=== PATIENT | male | born 1955 | race Caucasian/White ===

== ENCOUNTER 2017-06-23 08:21 | Outpatient (RCR) | payer OTHER ==
[2013-12-07 16:03] VITALS: Ht 175.3 cm; Wt 68.9 kg
[2017-04-12 09:17] LABS: PLATELET COUNT, AUTOMATED 80 K/uL (150-450)
[2017-04-12 09:24] VITALS: BP 141/81
[2017-04-19 13:00] VITALS: BP 154/80
--- NOTE | 2017-04-23 22:11 | ONCOLOGY FOLLOW UP NOTE ---
EVENT DATE: 04/19/2017 CHIEF COMPLAINT/REASON FOR VISIT Mr. 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 HISTORY OF PRESENT ILLNESS Juan sosa. Please see his oncology history below. He has undergone multiple ablative procedures to the liver with Y-90 including one in 2015. He has had excellent response to this in the past. He has known peritoneal studding on scans and this has increased with the most recent scan. This led to initiation of everolimus 10 mg daily in approximately March 2017 under the care of Dr. Toscano in [place]. I reviewed imaging from there through the [facility] system. He feels that he is already getting response as he feels some unusual sensations in the abdomen that are similar to when he was first diagnosed. He has very little side effects other than myelosuppression. I reviewed his labs from April 12, 2017, and we note some mild myelosuppression , but no need for dose adjustment at this time. We would like to check his labs approximately every two weeks for the next few weeks to see if he has plateaued and will go back up. If he continues to go down we may need to make a dose adjustment. Otherwise minimal GI symptoms with no major bowel changes. He does need to take a bowel movement earlier in the day than usual, but he is adapting his life around that. No diarrhea. No headaches, excess fatigue or other concerns. ONCOLOGY HISTORY He presented with chest pain in October of 2013. He had pain off and on for two years prior to that time. A round mass in the pancreatic head measuring approximately 3.5 cm was discovered. This was resected by Whipple surgery, and it was also discovered that he had numerous liver metastases. This was discovered to be a well-differentiated neuroendocrine tumor with a low Ki-67. He has been treated with octreotide with good success, but then had some progression evident near the end of 2014 or early 2015. Decision to proceed with directed therapy to the liver with palliative intent in September 2015, continuing octreotide. Due to growth of lesions in the peritoneum and liver, he initiated Afinitor 10 mg daily in March 2017. PAST MEDICAL, PAST SURGICAL HISTORY 1. BPH. 2. Osteopenia. 3. Hypercholesterolemia. 4. Metastatic neuroendocrine tumor. SOCIAL HISTORY The patient is . He has two adult sons. 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 He has a past history of team [email or web address]coming in [facility] and is wearing a trophy belt from 2002. 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 Nonsmoker. FAMILY HISTORY Father with prostate cancer at age sixty-five. Brother with bladder cancer at age thirty-nine. Paternal grandmother with pancreatic cancer at the age of eighty. Sister with sarcoma of the leg, now . ALLERGIES No known drug allergies. REVIEW OF SYSTEMS CONSTITUTIONAL: No fevers, chills, weight change. HEENT: No headache or vision changes. CARDIOVASCULAR: No chest pain, dyspnea on exertion or edema. RESPIRATORY: No shortness of breath, wheeze, cough. GASTROINTESTINAL: No nausea, vomiting, diarrhea. No issues with constipation currently. GENITOURINARY: No dysuria or hematuria. MUSCULOSKELETAL: No weakness or joint pain. PSYCHIATRIC: No anxiety or depression. ENDOCRINE: No heat or cold intolerance. SKIN: No concerning flushing, sweats or other concerns for carcinoid syndrome. LYMPHATIC: No concerning lumps or bumps. The remainder of the 14-point review of systems is otherwise negative. PHYSICAL EXAMINATION VITAL SIGNS: Blood pressure 154/80 and stable. No increase with the addition of Afinitor. Pulse 52, respiratory rate 16, temperature 97.6 Fahrenheit, oxygen saturation 93% on room air. Weight 70.9 kg. Pain 0/10, fatigue 0/10. GENERAL: In stable condition, resting comfortably in the chair. HEENT: Normocephalic, atraumatic. ABDOMEN: Soft, nontender, nondistended. No organomegaly or masses appreciated. EXTREMITIES: No clubbing, cyanosis or edema. No other abnormal findings on exam today. Full exam deferred to amount of time spent in counseling and coordination of care. IMPRESSION AND PLAN Mr. Guadarrama is a very pleasant 61-year-old gentleman with the followin. Metastatic pancreatic neuroendocrine tumor with metastasis to the liver and peritoneum. Well-differentiated with a low Ki-67 score. He has received multiple episodes of Y-90 with good success. He is now on Afinitor and has been on it for one month. He has some myelosuppression. We will check his labs again in one week. We will see him with my nurse practitioner monthly while in [place]. He sees Dr. Toscano with repeat imaging in [place] in approximately June. I answered all of his many questions today. 2. B12 deficiency. History of B12 shots. We have continued these. I answered all of his questions today. Billing: Return visit level 4. Total time 30 minutes, counseling time 20. High risk, high complexity. MTDD
[2017-04-28 08:37] VITALS: BP 148/89
[2017-04-28 08:49] LABS: PLATELET COUNT, AUTOMATED 90 K/uL (150-450)
[2017-05-26 09:37] LABS: PLATELET COUNT, AUTOMATED 123 K/uL (150-450)
[2017-05-26 15:24] VITALS: BP 148/89
[2017-06-07 10:05] VITALS: BP 144/89
--- NOTE | 2017-06-08 18:53 | ONCOLOGY FOLLOW UP NOTE ---
EVENT DATE: June 07, 2017 CHIEF COMPLAINT/REASON FOR VISIT Mr. 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 HISTORY OF PRESENT ILLNESS Juan sosa. Please see his oncology history below. He has undergone multiple ablative procedures to the liver with Y-90, including one in 2015, with an excellent response in the past. He now has peritoneal studding on scans that increased with a scan in late 2016, leading to initiation of everolimus 10 mg daily in March 2017. Imaging is done under the care of Dr. Toscano in [place]. The patient has noted some slight increase in his rash since starting this and some increased fatigue. Otherwise he is tolerating this extremely well. He had some initial mild myelosuppression, but not enough to warrant a dose adjustment. We expected his labs to improve and they slowly have. He does continue to have some mild lymphopenia. Minimal GI symptoms. No other concerns today. He has scans to assess response after three months, due at the end of this month in [place]. ONCOLOGY HISTORY He presented with chest pain in October of 2016, and had pain for approximately two years on and off prior to that time. A round mass in the pancreatic head measuring approximately 3.5 cm was discovered. This was resected by a Whipple surgery and it was also discovered at that time that he had numerous liver metastases. Fortunately this was determined to be a low-grade, well- differentiated neuroendocrine tumor with a low Ki-67 score. He has been treated with Octreotide with good success in his symptoms, but had progression in [id number] leading to directed therapy to the liver. Due to growth of lesions in the peritoneum and liver in 2016, he initiated Afinitor 10 mg daily in March 2017. PAST MEDICAL/SURGICAL HISTORY 1. BPH. 2. Osteopenia. 3. Hypercholesterolemia. 4. Low grade metastatic neuroendocrine tumor. SOCIAL HISTORY Patient is and has presented with his . 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 Two adult sons. He has trophy belts from 2003 from [employer] in [place]. 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 Nonsmoker. FAMILY HISTORY Remarkable for a father with prostate cancer at age 65, and a brother with bladder cancer at age 39. A paternal grandmother had pancreatic cancer at the age of 80. He also has a sister who had a sarcoma of the leg, now . ALLERGIES No known drug allergies. REVIEW OF SYSTEMS CONSTITUTIONAL: No fevers, chills, weight change. HEENT: No headache or vision changes. CARDIOVASCULAR: No chest pain, dyspnea on exertion or edema. RESPIRATORY: No shortness of breath, wheeze, cough. GASTROINTESTINAL: No nausea, vomiting, diarrhea. No issues with constipation currently. GENITOURINARY: No dysuria or hematuria. MUSCULOSKELETAL: No weakness or joint pain. PSYCHIATRIC: No anxiety or depression. ENDOCRINE: No heat or cold intolerance. SKIN: No concerning flushing, sweats. He does get occasional itchy rash that responds to Benadryl. LYMPHATIC: No concerning lumps or bumps. The remainder of the 14-point review of systems is otherwise negative. PHYSICAL EXAMINATION VITAL SIGNS: Blood pressure 144/89, pulse 63, respiratory rate 16, temperature 98.4 Fahrenheit, oxygen saturation 97% on room air. Weight 68.9 kg. Pain 0/10 , fatigue 0/10. GENERAL: In stable condition, resting comfortably in the chair. HEENT: Normocephalic, atraumatic. ABDOMEN: Soft, nontender. He has a large surgical scar from his Whipple procedure with no abnormalities. SKIN: He has a mild rash on his right chest that is somewhat pruritic according to the patient. No other concerning findings on exam. EXTREMITIES: No clubbing, cyanosis or edema. Remainder of the full physical exam otherwise negative. IMPRESSION AND PLAN Mr. Guadarrama is a pleasant 62-year-old gentleman with the followin. Metastatic low grade pancreatic neuroendocrine tumor with metastasis to the liver and peritoneum. Low Ki-67 score. He has received multiple episodes of Y- 90 in the past with good success to the liver. He is now on Afinitor and tolerating it well. He had some initial myelosuppression, but this has resolved or improved. He still does have some mild lymphopenia. We would like to see him monthly while he is on this therapy here in [place]. He has repeat imaging at the end of June with Dr. Toscano in [place]. 2. History of B12 deficiency. He has a history of B12 shots. 3. Rash. I believe this is likely related to his neuroendocrine disease and we will treat it symptomatically. I answered all of his questions today. Billing: Return visit level 4. Total time 30 minutes, counseling time 20. High risk, high complexity. MARIA ESTHERD
[~2017-06-23] VITALS: Ht 175.3 cm; Wt 68.9 kg
[~2017-06-23 08:21] MED LIST: ALE70 PO; ATR10 PO; CHOL200021 PO; CHOL400C10 PO; CYANOCOBALAMIN 1000MCG/ML VIAL IM ONLY PRN; DOCU-416 PO; ERGO500025 PO; ERGO500029 PO; ESCI5TAB10 PO; EVER10TA PO; FINA5TAB64 PO; HYDR-4309 PO; IBUP600T22 PO; LIPA1CAP59 PO; LIPA1CAP63 PO; LOR5/325 PO; OMEP-125 PO; OMEP-137 PO; OMEP-218 PO; OMEP40CA45 PO; OMEP40CA48 PO; ONDA4TAB PO; OXYB5TAB86 PO; OXYC-865 PO; PHEN200T32 PO; TERA10CA44 PO; [UNRECOGNIZED DRUG - CODE]; [UNRECOGNIZED DRUG - CODE] IJ; [UNRECOGNIZED DRUG - CODE] IM; [UNRECOGNIZED DRUG - CODE] PO; [UNRECOGNIZED DRUG - OTHER] IM ONLY ONE
[2017-06-23 08:39] VITALS: BP 139/100
[2017-06-23] MEDS ORDERED: [UNRECOGNIZED DRUG - OTHER] IM ONLY PRN (08:55)
== END 2017-07-08 ==
LOC: SPU 08:21
PROVIDERS: ATTEND Internal Medicine
DX: C7A.8 Other malignant neuroendocrine tumors (principal); C78.7 Secondary malignant neoplasm of liver and intrahepatic bile duct; C79.89 Secondary malignant neoplasm of other specified sites; E53.8 Deficiency of other specified B group vitamins; R21 Rash and other nonspecific skin eruption
CPT/HCPCS: 36415; 85025; 85027; 96372; 96401; 99212; J2353; 82040; 82247; 82310; 82374; 82435; 82565; 82607; 82947; 84075; 84132; 84155; 84295; 84450; 84460; 84520

== ENCOUNTER 2017-06-24 01:27 | Day surgery (SDC) | payer OTHER ==
[2013-12-07 16:03] VITALS: Ht 175.3 cm; Wt 63.5 kg
[~2017-06-24] VITALS: Ht 175.3 cm; Wt 63.5 kg
[~2017-06-24 01:27] MED LIST changes: -CYANOCOBALAMIN 1000MCG/ML VIAL IM ONLY PRN; -[UNRECOGNIZED DRUG - OTHER] IM ONLY ONE
[2017-06-24 06:15] VITALS: BP 129/79
[2017-06-24] MEDS ORDERED: NORMOSOL R SOLN(*) 1000 ML BAG 1,000 ML IV PRN (06:45)
[2017-06-24] MEDS ORDERED: MIDAZOLAM 2 MG/2 ML VIAL IVP PRN (06:45)
[2017-06-24] MEDS ORDERED: LIDOCAINE/SOD BICARB 8.4% SYR ID ONE (06:45)
[2017-06-24] MEDS ORDERED: LIDOCAINE MPF 1% 5 ML VIAL ONE (07:24)
[2017-06-24] MEDS ORDERED: PROPOFOL EMUL(*) 10MG/ML 20 ML 40 ML ONE (07:24)
[2017-06-24 08:01] VITALS: BP 97/64
--- NOTE | 2017-06-24 08:02 | Post Operative Progress Note ---
Post Operative Progress Note Date: Jun 24, 2017 Time: 08:01 Surgeon: catrina Anesthesia: dr treviño Pre-Op Diagnosis: history of colon polyps Post-Op Diagnosis: normal exam Procedure(s): colonoscopy JOAN FLORENTINO MD Jun 24, 2017 08:02
--- NOTE | 2017-06-24 08:03 | Short(Outpt) Discharge Summary ---
Discharge Summary Reason for Hosp/Final Diag: (1) Encounter for colonoscopy due to history of adenomatous colonic polyps Hospital Course & Plan: normal colonoscopy Departure Discharge to: Home Discharge Instructions Home Meds Reported Medications Hydrocodone Bit/Acetaminophen (NORCO 5-325 TABLET) 1 Each Tablet, 1-2 EACH PO Q6H Y for pain, #20 TAB 04/08/17 Everolimus (AFINITOR) 10 Mg Tablet, 10 MG PO QDAY 04/07/17 Dexamethasone/Lidocaine HCl (Lidocidex I) 5 Mg-10 Mg/1.5 Ml Vial mouthwash use TID 03/31/17 Ibuprofen (IBUPROFEN) 600 Mg Tablet, 1 TAB PO Q6H Y for PAIN, #20 TAB 03/04/17 Octreotide Acetate (OCTREOTIDE ACETATE) 500 Mcg/1 Ml Vial, IJ [id number], VIAL 02/26/17 Escitalopram Oxalate (LEXAPRO) 5 Mg Tablet, 10 MG PO QDAY 03/20/15 Oxybutynin Chloride (OXYBUTYNIN CHLORIDE) 5 Mg Tablet, 10 MG PO QDAY, TAB 09/06/14 Finasteride (PROSCAR) 5 Mg Tablet, 5 MG PO QDAY 09/06/14 Terazosin Hcl (TERAZOSIN HCL) 10 Mg Capsule, 10 MG PO QHS, CAPSULE 09/06/14 Cholecalciferol (Vitamin D3) (VITAMIN D) 2,000 Unit Capsule, 2000 UNIT PO QDAY, CAPSULE 09/06/14 Alendronate Sodium (Fosamax) 70 Mg Tab, 70 MG PO QWK, #1 09/17/11 Discontinued Reported Medications Everolimus (AFINITOR) 10 Mg Tablet, 10 MG PO QDAY 03/31/17 Docusate Sodium (COLACE) 100 Mg Capsule, 100 MG PO BID, #30 CAPSULE 03/04/17 Cyanocobalamin (Vitamin B-12) (Vitamin B-12) 3,000 Mcg Lozenge, IM PRN 02/26/17 Discontinued Scripts Lipase/Protease/Amylase (CREON DR 24,000 UNITS CAPSULE) 1 Each Capsule., 1-3 EACH PO with meals and snack, #180 CAP 11 Refills Prov:TUTU COTTO MD 09/18/15 Diet: Regular Activity: As Tolerated JOAN FLORENTINO MD Jun 24, 2017 08:03
[2017-06-24 08:38] VITALS: BP 126/68
[2017-06-24 08:40] VITALS: BP 114/64
--- NOTE | 2017-06-24 14:21 | OPERATIVE REPORT 1 ---
EVENT DATE: June 24, 2017 SURGEON: David Hoff MD ANESTHESIOLOGIST: Stephen Abad MD ANESTHESIA: Sedation. PREOPERATIVE DIAGNOSIS Personal history of polyps. POSTOPERATIVE DIAGNOSIS Normal-appearing colonoscopic examination. PROCEDURE PERFORMED Colonoscopy. DESCRIPTION OF PROCEDURE The patient was placed in the left lateral decubitus position and given intravenous sedation. The rectal exam was unremarkable. A flexible colonoscope was inserted and advanced to the cecum. He had an excellent bowel prep. He had quite a long colon. We had to place him supine, hold pressure on the abdomen, and do some maneuvers with the scope, but we were able to get over to the cecum. The ileocecal valve and base of the cecum were identified. The scope was slowly withdrawn. Care was taken to look behind the haustral folds. No abnormalities were noted in the cecum, right colon, transverse, descending, or sigmoid colon. Rectum was normal. The scope was retroflexed, and that appeared to be normal. [facility]
== END 2017-06-24 08:59 | disposition home or self-care (01) ==
LOC: OR 01:27
PROVIDERS: ATTEND Surgery
DX: Z12.11 Encounter for screening for malignant neoplasm of colon (principal); Z86.010 Personal history of colon polyps
CPT/HCPCS: 00812; 45378; J2001; J2704

== ENCOUNTER → 2017-07-26 | Outpatient (CLI) | payer OTHER ==
[2013-12-07 16:03] VITALS: BMI 24.4
--- NOTE | 2017-07-26 16:38 | RADIOLOGY IMAGING REPORT ---
FACILITY: [facility] PATIENT NAME: Juan Guadarrama : 1955 MR: [id number] V: [id number] EXAM DATE: [id number] ORDERING PHYSICIAN: JOAN FLORENTINO TECHNOLOGIST: Location: [facility] [place] Patient: Juan Guadarrama : 1955 Visit/Account:[id number] Date of Sevice: 07/26/2017 SCROTAL ULTRASOUND INDICATION: Spermatic cord mass for three years COMPARISON: Termination of the abdomen and pelvis from April 2017 FINDINGS: Right testicle measures 3.4 x 1.8 x 2.1 cm in cc, AP, and transverse dimensions respectively. There is normal arterial and venous blood flow. Small hydrocele Small varicocele The right epididymal head measures 1.2 cm. Left testicle measures 4.1 x 2.1 x 3.2 cm in cc, AP, and transverse dimensions respectively. There is normal arterial and venous blood flow. Small hydrocele Small left varicocele The left epididymal head measures 0.8 cm. Superior to the left testicle there is a thin-walled cyst c yst without complexity or internal vascularity which measures 4.8 x 1.7 x 2.8 cm in dimension. This appears to be separate from the epididymis. The bilateral testicles appear homogenous in echogenicity. IMPRESSION: 1. Small bilateral varicoceles 2. Simple, benign-appearing 4.8 cm cyst within the left inguinal canal. The finding appears stable as compared to the prior CT examination abdomen and pelvis from April 2017 Report Dictated By: Prashant Olivier MD at 07/26/2017 4:25 PM Report E-Signed By: Prashant Olivier MD at 07/26/2017 4:33 PM WSN:[id number]
--- NOTE | 2017-07-27 16:27 | HISTORY AND PHYSICAL ---
DATE OF ADMISSION: July 27, 2017 CHIEF COMPLAINT Lump in his left groin. HISTORY OF PRESENT ILLNESS This is a 61-year-old male who has had a Whipple resection for a pancreas with an endocrine tumor, and he has had mets to the liver, and he presented with a lump in his left groin. This lump has been present for several months and is causing him some discomfort, especially when he rides horses. Patient underwent an ultrasound examination which revealed a 4.8 x 2.8 cm cyst in the superior aspect of his spermatic cord. PAST SURGICAL HISTORY * Colonoscopy. * EGD. * Kidney stones. * Liver resection. * Whipple operation. ALLERGIES No known allergies. CURRENT MEDICATIONS * Afinitor 10 mg daily. * Alendronate 70 mg. * Lexapro 10 mg. * Oxybutynin 5 mg. * Pepcid 20 mg. * Proscar 5 mg. * Terazosin 10 mg. REVIEW OF SYSTEMS He has no cardiac disease, pulmonary disease, no diabetes. There is no history of deep vein thrombosis. PHYSICAL EXAMINATION GENERAL: A 61-year-old male in no acute distress. LUNGS: Clear. HEART: Regular rhythm. GENITOURINARY: He has a palpable mass in the left spermatic cord just after the external ring. No palpable hernia. IMPRESSION Cyst in the left groin. PLAN We will excise this. We discussed the procedure,complications, recovery time. He understands and wishes to proceed. CINTHYA
== END ==
LOC: US 15:02
PROVIDERS: ATTEND Surgery
DX: I86.1 Scrotal varices (principal); N50.89 Other specified disorders of the male genital organs
CPT/HCPCS: 76870

== ENCOUNTER 2017-08-03 01:29 | Day surgery (SDC) | payer OTHER ==
[2013-12-07 16:03] VITALS: Ht 175.3 cm; Wt 65.3 kg
[~2017-08-03] VITALS: Ht 175.3 cm; Wt 65.3 kg
[2017-08-03] MEDS ORDERED: LIDOCAINE/SOD BICARB 8.4% SYR ID ONE (06:30)
[2017-08-03] MEDS ORDERED: MIDAZOLAM 2 MG/2 ML VIAL IVP ONE (06:30)
[2017-08-03] MEDS: FAMOTIDINE 20 MG TAB PO ONE ×2 (06:30→06:59)
[2017-08-03] MEDS ORDERED: ROPIVACAINE 0.2% 20 ML VIAL ONE (06:38)
[2017-08-03] MEDS: NORMOSOL R SOLN(*) 1000 ML BAG 1,000 ML IV PRN ×2 (06:59→08:36)
[2017-08-03 07:00] VITALS: BP 156/83
[2017-08-03] MEDS ORDERED: FAMOTIDINE(*) 20MG/50ML PREMIX 50 ML IVPB ONE (07:00)
[2017-08-03] MEDS ORDERED: SUCCINYLCHOL CHL 200MG/10ML VL ONE (07:30)
[2017-08-03] MEDS ORDERED: LIDOCAINE MPF 1% 5 ML VIAL ONE (07:54)
[2017-08-03] MEDS ORDERED: ONDANSETRON 4 MG/2 ML VIAL ONE (07:54)
[2017-08-03] MEDS ORDERED: DEXAMETHASONE SOD PHOS 10MG/ML ONE (07:54)
[2017-08-03] MEDS ORDERED: PROPOFOL EMUL(*) 10MG/ML 20 ML 40 ML ONE (07:54)
[2017-08-03] MEDS ORDERED: OXYC-865 PO (08:24)
--- NOTE | 2017-08-03 08:24 | Post Operative Progress Note ---
Post Operative Progress Note Date: Aug 03, 2017 Time: 08:23 Surgeon: catrina Anesthesia: dr kyle Pre-Op Diagnosis: left hydrocele Post-Op Diagnosis: same Procedure(s): left hydrocelectomy JOAN FLORENTINO MD Aug 03, 2017 08:23
--- NOTE | 2017-08-03 08:26 | Short(Outpt) Discharge Summary ---
Discharge Summary Reason for Hosp/Final Diag: (1) Hydrocele in adult Hospital Course & Plan: left hydrocele excised Departure Discharge to: Home Discharge Instructions Home Meds Active Scripts Oxycodone Hcl/Acetaminophen (PERCOCET 5-325 MG TABLET) 1 Each Tablet, 1 EACH PO Q4H Y for PAIN, #30 TAB Prov:JOAN FLORENTINO MD 08/03/17 Reported Medications Hydrocodone Bit/Acetaminophen (NORCO 5-325 TABLET) 1 Each Tablet, 1-2 EACH PO Q6H Y for pain, #20 TAB 04/08/17 Everolimus (AFINITOR) 10 Mg Tablet, 10 MG PO QDAY 04/07/17 Dexamethasone/Lidocaine HCl (Lidocidex I) 5 Mg-10 Mg/1.5 Ml Vial mouthwash use TID 03/31/17 Ibuprofen (IBUPROFEN) 600 Mg Tablet, 1 TAB PO Q6H Y for PAIN, #20 TAB 03/04/17 Octreotide Acetate (OCTREOTIDE ACETATE) 500 Mcg/1 Ml Vial, IJ [id number], VIAL 02/26/17 Escitalopram Oxalate (LEXAPRO) 5 Mg Tablet, 10 MG PO QDAY 03/20/15 Oxybutynin Chloride (OXYBUTYNIN CHLORIDE) 5 Mg Tablet, 10 MG PO QDAY, TAB 09/06/14 Finasteride (PROSCAR) 5 Mg Tablet, 5 MG PO QDAY 09/06/14 Terazosin Hcl (TERAZOSIN HCL) 10 Mg Capsule, 10 MG PO QHS, CAPSULE 09/06/14 Cholecalciferol (Vitamin D3) (VITAMIN D) 2,000 Unit Capsule, 2000 UNIT PO QDAY, CAPSULE 09/06/14 Alendronate Sodium (Fosamax) 70 Mg Tab, 70 MG PO QWK, #1 09/17/11 Diet: Regular Activity: As Tolerated Special Instructions: ibuprofen prn may shower to see me in one week, call [phone] for apt JOAN FLORENTINO MD Aug 03, 2017 08:26
[2017-08-03] MEDS ORDERED: fentaNYL CITR 100 MCG/2 ML AMP ONE (08:34)
[2017-08-03 09:00] VITALS: BP 125/79
[2017-08-03 09:15] VITALS: BP 133/83
[2017-08-03 09:30] VITALS: BP 149/80
[2017-08-03 09:41] VITALS: BP 123/79
[2017-08-03 09:42] VITALS: BP 111/72
--- NOTE | 2017-08-10 21:23 | OPERATIVE REPORT 1 ---
EVENT DATE: August 03, 2017 SURGEON: David Hoff MD ANESTHESIOLOGIST: Micha Montiel MD ANESTHESIA: General. PREOPERATIVE DIAGNOSIS Left hydrocele. POSTOPERATIVE DIAGNOSIS Left hydrocele. PROCEDURE PERFORMED Left hydrocelectomy. DESCRIPTION OF PROCEDURE The patient was placed in the supine position and given general anesthetic. His genitalia was prepped and draped in a sterile fashion. The cystic structure was midway up the cord just outside the external ring. We made a vertical incision over this, carried it down through the skin and subcutaneous tissue. I got down to the level of the hydrocele. We then grasped the edge of the sac and proceeded to dissect it from the surrounding tissues. We continued to follow the sac down to the level of the testicle. It was then excised off the testicle and left open in the inferior portion. At this point, we had excellent hemostasis. Skin was reapproximated with interrupted 4-0 Maxon, and Dermabond was placed. The patient tolerated the procedure well. No apparent complication. [facility]
== END 2017-08-03 09:00 | disposition home or self-care (01) ==
LOC: OR 01:29
PROVIDERS: ATTEND Surgery
DX: N43.3 Hydrocele, unspecified (principal); K58.9 Irritable bowel syndrome, unspecified; K21.9 Gastro-esophageal reflux disease without esophagitis; Z85.05 Personal history of malignant neoplasm of liver; Z85.07 Personal history of malignant neoplasm of pancreas; Z90.49 Acquired absence of other specified parts of digestive tract
CPT/HCPCS: 55040; 88305; J0330; J1100; J2001; J2405; J2704; J2795; J3010; J3490

== ENCOUNTER 2017-10-13 08:29 | Outpatient (RCR) | payer OTHER ==
[2013-12-07 16:03] VITALS: Wt 70.7 kg
[2017-07-19 10:34] VITALS: BP 158/83
--- NOTE | 2017-07-20 17:14 | ONCOLOGY FOLLOW UP NOTE ---
EVENT DATE: July 19, 2017 CHIEF COMPLAINT/REASON FOR VISIT Mr. 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 HISTORY OF PRESENT ILLNESS Juan sosa. Please see his oncology history below. He has had multiple ablative procedures to the liver with Y-90 including one in 2015 with excellent response. He had peritoneal studding on a scan that increased in late 2016, which led to the initiation of everolimus 10 mg daily in March 2017. Imaging was done under the care of Dr. Toscano in [place], and the most recent imaging shows stable disease. He feels some pruritus in the skin and had increase in the rash when starting the everolimus. Thus I think this is a grade 1 skin irritation pruritus/rash from the everolimus. It could be from his disease as well, although it seems different to him. He continues the Octreotide monthly and is due for it later this week. His labs overall look well. He continues to have some mild leukopenia. Increased bowel movements and he has lost about five pounds in the last four months, but he thinks that this is now stable. He attributes it to the colonoscopy that he had in June and he thinks he is now beginning to gain weight again. ONCOLOGY HISTORY He presented with chest pain in October of 2016, and had pain for approximately two years on and off prior to that time. A round mass in the pancreatic head measuring approximately 3.5 cm was discovered. This was resected by a Whipple surgery and it was also discovered at that time that he had numerous liver metastases. Fortunately this was determined to be a low-grade, well- differentiated neuroendocrine tumor with a low Ki-67 score. He has been treated with Octreotide with good success in his symptoms, but had progression in [id number] leading to directed therapy to the liver. Due to growth of lesions in the peritoneum and liver in 2017, he initiated Afinitor 10 mg daily in March 2017. PAST MEDICAL/SURGICAL HISTORY 1. BPH. 2. Osteopenia. 3. Hypercholesterolemia. 4. Low grade metastatic neuroendocrine tumor. SOCIAL HISTORY Patient is and has presented with his . 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 He has trophy belts from 2002 from [employer] in [facility]. 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 Nonsmoker. FAMILY HISTORY Remarkable for a father with prostate cancer at age 65, and a brother with bladder cancer at age 39. A paternal grandmother had pancreatic cancer at the age of 80. He also has a sister who had a sarcoma of the leg, now . ALLERGIES No known drug allergies. REVIEW OF SYSTEMS CONSTITUTIONAL: No fevers, chills. Less than 10 pound weight change. HEENT: No headache or vision changes. CARDIOVASCULAR: No chest pain, dyspnea on exertion or edema. RESPIRATORY: No shortness of breath, wheeze, cough. GASTROINTESTINAL: No nausea, vomiting, significant diarrhea. SKIN: Positive pruritus. No significant rash today. LYMPHATIC: He has a 1 cm palpable lymph node that he seemed to irritate when he was cross country skiing this month that is now resolving. It was tender and I think unrelated to his disease. pain. PSYCHIATRIC: No anxiety or depression. The remainder of the 14-point review of systems is otherwise negative. PHYSICAL EXAMINATION VITAL SIGNS: Blood pressure 158/83, pulse 58, respiratory rate 16, temperature 97.5 Fahrenheit, oxygen saturation 92% on room air. Weight 70.5 kg, and actually up two pounds compared to June. GENERAL: In stable condition, resting comfortably in the chair. HEENT: Normocephalic, atraumatic. LYMPHATIC: He has a 1 cm palpable lymph node palpable in the right axillary chain that is slightly tender, likely reactive. ABDOMEN: Soft, nontender. No masses or organomegaly. No pain. EXTREMITIES: No clubbing, cyanosis or edema. Remainder of physical exam unremarkable. IMPRESSION AND PLAN Mr. Guadarrama is a pleasant 62-year-old gentleman with the followin. Metastatic low grade neuroendocrine tumor with metastases to the liver and peritoneum. Low Ki-67 score. He has had multiple episodes of Y-90 in the past with good success in the liver. He is now on everolimus and tolerating it well 10 mg daily. He had some initial myelosuppression, but this has stabilized with mild lymphopenia is all. We will continue to see him monthly while he is here in [place]. He has followup with Dr. Toscano in August. 2. History of B12 deficiency. 3. Rash and dry skin, initially thought to be related to a neuroendocrine disease that may be related to the everolimus as well. I answered all of his questions. Billing: Return visit level 4. Total time 30 minutes, counseling time 20. MTDD
[2017-07-21 08:41] VITALS: BP 152/80
[2017-08-18 08:38] VITALS: BP 143/93
[2017-08-18 09:02] LABS: PLATELET COUNT, AUTOMATED 110 K/uL (150-450)
[2017-08-30 08:02] VITALS: BP 154/96
--- NOTE | 2017-08-31 16:24 | ONCOLOGY FOLLOW UP NOTE ---
EVENT DATE: August 30, 2017 CHIEF COMPLAINT/REASON FOR VISIT Mr. 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 HISTORY OF PRESENT ILLNESS Juan sosa. Please see his oncology history below. He has had multiple ablative procedures to the liver with Y-90 including one in 2015 with excellent response. However, he developed peritoneal studding that increased in late 2016 and we began everolimus 10 mg daily in March 2017. Imaging done early this year in [place] showed stable disease. He is using a post shower topical therapy which is helping with the pruritus and dryness of the skin. He had grade 1 skin irritation, but this is no longer present with this remedy. It could be related disease, but I suspect it is related to the everolimus. He continues to have Octreotide monthly and this is helpful. He has mild lymphopenia, but no need for intervention. The patient has a cyst in the left inguinal canal that has been treated surgically in the past. It has recurred. I recommend he keep followup with Surgery with an ultrasound planned. This may need to be drained again. ONCOLOGY HISTORY He presented with chest pain in October of 2016, and had pain for approximately two years on and off prior to that time. A round mass in the pancreatic head measuring approximately 3.5 cm was discovered. This was resected by a Whipple surgery and it was also discovered at that time that he had numerous liver metastases. Fortunately this was determined to be a low-grade, well- differentiated neuroendocrine tumor with a low Ki-67 score. He has been treated with Octreotide with good success in his symptoms, but had progression in [id number] leading to directed therapy to the liver. Due to growth of lesions in the peritoneum and liver in 2016, he initiated Afinitor 10 mg daily in March 2017. PAST MEDICAL/SURGICAL HISTORY 1. BPH. 2. Osteopenia. 3. Hypercholesterolemia. 4. Low grade metastatic neuroendocrine tumor. SOCIAL HISTORY Patient is and has presented with his . 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 Two adult sons. He has trophy belts from 2002 from [employer] in [facility] [facility]. 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 Nonsmoker. FAMILY HISTORY Remarkable for a father with prostate cancer at age 65, and a brother with bladder cancer at age 39. A paternal grandmother had pancreatic cancer at the age of 80. He also has a sister who had a sarcoma of the leg, now . ALLERGIES No known drug allergies. REVIEW OF SYSTEMS CONSTITUTIONAL: No fevers, chills. HEENT: No headache or vision changes. CARDIOVASCULAR: No chest pain, dyspnea on exertion or edema. RESPIRATORY: No shortness of breath, wheeze, cough. GASTROINTESTINAL: No nausea, vomiting or significant diarrhea. SKIN: Pruritus is controlled. No rash today. LYMPHATIC: He has a 2 cm cyst versus other abnormality in the left inguinal canal near the left side of his scrotum. No epididymitis or pain there on exam. PSYCHIATRIC: No anxiety or depression. ENDOCRINE: No heat or cold intolerance. NEUROLOGIC: No focal deficits. The remainder of the 14-point review of systems is otherwise negative. PHYSICAL EXAMINATION VITAL SIGNS: Blood pressure 154/96, pulse 63, respiratory rate 16, temperature 97.6 Fahrenheit, oxygen saturation 96% on room air. Weight 70.7 kg. Pain 0/10 , fatigue 0/10. GENERAL: In stable condition, resting comfortably in the chair. HEENT: Normocephalic, atraumatic. ABDOMEN: Soft, nontender. No masses. No pain. EXTREMITIES: No clubbing, cyanosis or edema. GENITOURINARY: Patient has a 2-3 cm cystic lesion most likely in the left inguinal canal extending into the scrotum. It is separate from the testis. No other abnormalities, no erythema. Remainder of physical exam otherwise unremarkable. IMPRESSION AND PLAN Mr. Guadarrama is a very pleasant 62-year-old gentleman with the followin. Metastatic low grade neuroendocrine tumor with metastases to the liver and peritoneum. Low Ki-67 score. He has had multiple episodes of Y-90 in the past with good success. He is now on Octreotide and everolimus 10 mg daily. He is tolerating it well. He has mild lymphopenia. 2. History of B12 deficiency. Due for another B12 shot, and the patient is noticing some fatigue which he attributes to this. 3. Rash and dry skin, resolved with topical therapy moisturizing remedy. I answered all of his questions. Billing: Return visit level 4. Total time 30 minutes, counseling time 20. MTDD
[2017-09-15 08:49] VITALS: BP 148/80
[2017-09-15 09:11] LABS: PLATELET COUNT, AUTOMATED 80 K/uL (150-450)
[~2017-10-13 08:29] MED LIST changes: +CYANOCOBALAMIN 1000MCG/ML VIAL IM ONLY ONE; +FAMO20TA28 PO; +[UNRECOGNIZED DRUG - OTHER] IM ONLY ONE
[2017-10-13 08:34] VITALS: BP 135/85
[2017-10-13 08:48] LABS: PLATELET COUNT, AUTOMATED 89 K/uL (150-450)
[2017-10-13] MEDS ORDERED: [UNRECOGNIZED DRUG - OTHER] IM ONLY ONE (08:50)
== END 2017-10-14 ==
LOC: SPU 08:29
PROVIDERS: ATTEND Internal Medicine
DX: C7A.8 Other malignant neuroendocrine tumors (principal); C78.7 Secondary malignant neoplasm of liver and intrahepatic bile duct; C79.89 Secondary malignant neoplasm of other specified sites; E53.8 Deficiency of other specified B group vitamins; R21 Rash and other nonspecific skin eruption
CPT/HCPCS: 36415; 82607; 82746; 85025; 85027; 96372; 99212; J2353; J3420; 82040; 82247; 82310; 82374; 82435; 82565; 82947; 84075; 84132; 84155; 84295; 84450; 84460; 84520

== ENCOUNTER 2018-02-02 08:28 | Outpatient (RCR) | payer OTHER ==
[2013-12-07 16:03] VITALS: Wt 69.1 kg
[2017-11-09 08:39] VITALS: BP 140/82
--- NOTE | 2017-11-10 05:04 | [facility] ONCOLOGY NOTE ---
EVENT DATE: November 09, 2017 CHIEF COMPLAINT/REASON FOR VISIT Mr. Gaudarrama is a very pleasant 62-year-old gentleman with low-grade metastatic neuroendocrine tumor of the pancreas, here on followup with octreotide and everolimus. HISTORY OF PRESENT ILLNESS Juan sosa. Please see his oncology history below for more details. In short, he had multiple ablative procedures to the liver with Y-90 including one in 2015 with excellent response. However, he developed peritoneal studding in late 2016, and we began everolimus 10 mg daily in March 2017. Imaging was done in [place] in 2018, which showed stable disease. He has mild pruritus from the treatment, but he has found remedies that help with it. I suspect it is due to the drug as opposed to the disease, given the time that it started. He finds the octreotide monthly continues to be helpful. He has mild lymphopenia and has developed a cold sore. I will treat him with Valtrex for seven to ten days and then watch. If this becomes a recurrent issue, then we made need prophylactic acyclovir or Valtrex. This is the only event that has happened in the last nine months, and so I do not think it requires it just yet (prophylaxis). Otherwise, he is doing well. He just had his four grandchildren visit for the october and had an excellent week. ONCOLOGY HISTORY He presented with chest pain in October of 2016, and had pain for approximately two years on and off prior to that time. A round mass in the pancreatic head measuring approximately 3.5 cm was discovered. This was resected by a Whipple surgery and it was also discovered at that time that he had numerous liver metastases. Fortunately this was determined to be a low-grade, well- differentiated neuroendocrine tumor with a low Ki-67 score. He has been treated with Octreotide with good success in his symptoms, but had progression in 3526-1768 leading to directed therapy to the liver. Due to growth of lesions in the peritoneum and liver in 2016, he initiated Afinitor 10 mg daily in March 2017. PAST MEDICAL/SURGICAL HISTORY 1. BPH. 2. Osteopenia. 3. Hypercholesterolemia. 4. Low grade metastatic neuroendocrine tumor. SOCIAL HISTORY Patient is and has presented with his . 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 He has trophy belts from [address] from [employer] in [place] [facility]. 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 Nonsmoker. FAMILY HISTORY Remarkable for a father with prostate cancer at age 65, and a brother with bladder cancer at age 39. A paternal grandmother had pancreatic cancer at the age of 80. He also has a sister who had a sarcoma of the leg, now . ALLERGIES No known drug allergies. REVIEW OF SYSTEMS CONSTITUTIONAL: No fevers, chills. HEENT: No headache or vision changes. CARDIOVASCULAR: No chest pain, dyspnea on exertion or edema. RESPIRATORY: No shortness of breath, wheeze, cough. GASTROINTESTINAL: No nausea, vomiting. SKIN: Pruritus is well controlled now. No concerning rash. LYMPHATIC: No concerns. PSYCHIATRIC: No anxiety or depression. ENDOCRINE: No heat or cold intolerance. NEUROLOGIC: No focal deficits. The remainder of the 14-point review of systems is otherwise negative. PHYSICAL EXAMINATION VITAL SIGNS: Blood pressure 140/82, pulse 60, respiratory rate 16, temperature 97 Fahrenheit, oxygen saturation 94% on room air. Weight 68.1 kg. Pain 0/10, fatigue 0/10. GENERAL: Stable condition, resting comfortably in the chair. HEENT: Normocephalic, atraumatic. CARDIOVASCULAR: Deferred. ABDOMEN: Soft, nontender. No masses. No organomegaly. No pain. Belly exam is normal. EXTREMITIES: No clubbing, cyanosis or edema. GENITOURINARY: Patient has previously had a cystic lesion in the left inguinal canal extending to the scrotum. Not examined today, but we are just watching this. No changes. Remainder of physical exam otherwise unremarkable. IMPRESSION AND PLAN Mr. Guadarrama is a very pleasant 62-year-old gentleman with the followin. Metastatic low grade neuroendocrine tumor with metastases to the liver and peritoneum. Low Ki-67 score. He has had multiple episodes of Y-90 in the past with good success. He is now on octreotide and everolimus 10 mg daily. He is tolerating it quite well. 2. 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 He developed a cold core and we will treat with seven to ten days of Valtrex for now. No prophylaxis after that yet. 3. History of B12 deficiency. 4. Rash and dry skin, likely due to everolimus, resolved with topical therapy and moisturizing the skin. I answered all of his questions today. We had an excellent visit. He will see Dr. Toscano next month, and then I will see him in two months. Billing: Return visit level 4. Total time 30 minutes, counseling time 20. CINTHYA
[2017-11-10 09:05] LABS: PLATELET COUNT, AUTOMATED 92 K/uL (150-450)
[2017-11-10 09:54] VITALS: BP 129/88
--- NOTE | 2017-11-30 12:10 | Oncology Progress Note ---
History of Present Illness Evaluation Evaluation Date: Nov 30, 2017 Evaluation Time: 11:10 Primary Care Provider Primary Care Provider: Barb Vogel DO Accompanied by Accompanied by: Self Last seen by : Char 11/09/2017 Chief Complaint Chief Complaint Cold Sore Oncology History Oncology History He presented with chest pain in October of 2016, and had pain for approximately two years on and off prior to that time. A round mass in the pancreatic head measuring approximately 3.5 cm was discovered. This was resected by a Whipple surgery and it was also discovered at that time that he had numerous liver metastases. Fortunately this was determined to be a low-grade, well- differentiated neuroendocrine tumor with a low Ki-67 score. He has been treated with Octreotide with good success in his symptoms, but had progression in 5431-7488 leading to directed therapy to the liver. Due to growth of lesions in the peritoneum and liver in 2016, he initiated Afinitor 10 mg daily in March 2017. Treatment Treatment - Began everolimus 10 mg daily in March 2017. and - octreotide monthly HPI HPI Mr. 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 Patient's report been in his usual state of health. The cold sore has been on the left lower lip for over 3 weeks. it bothers him mostly at nights and in the mornings, when is crusted and annoying. 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 denies any cardiac type chest pain, no SOb, no dark stools, no bruising, no chills, fevers at home, no night sweats, no headaches, or dizziness. Significant PMH of BPH; Osteopenia ; Hypercholesterolemia. 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 Nonsmoker. Living Conditions and has presented with his . 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 Two adult sons. Social/Occupational History Social History: Social History This is a 62 Yr old White male, he is M and has [] Children Hx Smoking: No Smoking Status: Never Smoker Exposure to Second Hand Smoke?: No Allergies & Medications Allergies: Uncoded Allergies: DUST, SEASONAL ALLERGIES (Allergy, Unknown, 09/17/11) Home Meds Active Scripts Lipase/Protease/Amylase (MARY GRACE SPICER 24,000 UNITS CAPSULE) 1 Each Capsule., 1 EACH PO 1-3XD for 60 Days, BOTTLE Prov:TONE THOMPSON NEGRITO, ONC 11/30/17 Valacyclovir Hcl (VALACYCLOVIR) 1,000 Mg Tablet, 2000 MG PO 1-2XD for 1 Day, TAB Prov:NEDA THOMPSONJeffery MAHAN, ONC 11/30/17 Valacyclovir Hcl (VALTREX) 500 Mg Tablet, 1000 MG PO BID for 10 Days, #28 TAB 1 Refill Prov:NEDA THOMPSONJeffery MAHAN, ONC 11/30/17 Oxycodone Hcl/Acetaminophen (PERCOCET 5-325 MG TABLET) 1 Each Tablet, 1 EACH PO Q4H Y for PAIN, #30 TAB Prov:JOAN FLORENTINO MD 08/03/17 Reported Medications Everolimus (AFINITOR) 10 Mg Tablet, 10 MG PO QDAY 04/07/17 Ibuprofen (IBUPROFEN) 600 Mg Tablet, 1 TAB PO Q6H Y for PAIN, #20 TAB 03/04/17 Octreotide Acetate (OCTREOTIDE ACETATE) 500 Mcg/1 Ml Vial, IJ [id number], VIAL 02/26/17 Escitalopram Oxalate (LEXAPRO) 5 Mg Tablet, 10 MG PO QDAY 03/20/15 Oxybutynin Chloride (OXYBUTYNIN CHLORIDE) 5 Mg Tablet, 10 MG PO QDAY, TAB 09/06/14 Finasteride (PROSCAR) 5 Mg Tablet, 5 MG PO QDAY 09/06/14 Terazosin Hcl (TERAZOSIN HCL) 10 Mg Capsule, 10 MG PO QHS, CAPSULE 09/06/14 Cholecalciferol (Vitamin D3) (VITAMIN D) 2,000 Unit Capsule, 2000 UNIT PO QDAY, CAPSULE 09/06/14 Alendronate Sodium (Fosamax) 70 Mg Tab, 70 MG PO QWK, #1 09/17/11 Discontinued Reported Medications Famotidine (PEPCID) 20 Mg Tablet, 10 MG PO QDAY, #10 TAB 09/16/17 Review of Systems Constitution: Denies Appetite/Weight Change, Denies Fever/Chills/Sweating, Denies Recent Infection, Denies Other HEENT: OTHER (cold sore) Respiratory: No Cough, No Expectoration, No Hemoptysis, No Shortness of Breath , No OTHER Cardiovascular: No Chest Pain, No Orthopnea, No Edema, No Palpitations, No OTHER Gastrointestinal: No Nausea, No Vomitting, No Diarrehea, No Constipation, No Heart Burn, No Swallowing Difficulties, No Abdominal Pain, No Other Gentiourinary: No Hematuria, No Dysuria, No Nocturia, No Other Musculoskeletal: No Muscle Pain, No Joint Pain, No Bone Pain, No Other Hematological: No Bleeding, No Weakness, No Enlarged Lyph Nodes, No Bruising, No Fatigue, No Other Skin: Skin Rash, No Lumps, No Erythema, No Dry Skin, No Moist Skin, No Other Psychiatric: No Anxiety, No Depression, No Other Vital Signs Vital Signs Temperature: 97.8 Pulse: 64 BP Systolic: 129 BP Diastolic: 88 Respiratory Rate: 16 O2 SAT: 92 O2 Delivery: Room Air Height (feet) 5 Height (inches) 69.00 Weight lb: 144 Weight oz: 4.0 Weight Kg (Mychal): [id number] Pain: 0 Physical Exam General: Looks Stable, Well Developed, Well Nourished (in no acute distress) HEENT: No HEAD:Atraumatic, No EYES: Conjuctivitis, No EYES: Icterus, No MOUTH: Mucocitis, No MOUTH: Oral Thrush, No SINUS: Tenderness to Palpation, No Other Neck: Supple, No Cervical Lymphadenopathy, No Subclavicular Lymphadopathy, No Thyromegaly, No Other Lungs: Clear to Auscultation, No Percussion Bilaterally, No Other Heart: Regular Rate and Rhythm, No Gallops, No Murmurs, No Clicks, No Rubs, No Other Abdomen: Soft and Nontender, No Hepatosplenomegaly, No Masses, No Other Extremities: No Cyanosis, No Clubbing, No Edema, No Other Lymphatics: No Peripheral Lymphadenopathy, No Other Psychiatric: Mood appears normal, Affect appears normal Skin: Other (herpes simplex labialis) Breast: No No Masses, No No Nipple Discharge, No No Skin Changes, No Other Assessment and Plan Assessment and Plan Mr. 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 Patient's report been in his usual state of health. The cold sore has been on the left lower lip for over 3 weeks. it bothers him mostly at nights and in the mornings, when is crusted and annoying. 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 Significant PMH of BPH; Osteopenia ; Hypercholesterolemia. 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 Nonsmoker. DIAGNOSTIC DATA. reviewed on [employer]. within normal limits except elevated LFTs 1. Metastatic low grade neuroendocrine tumor with metastases to the liver and peritoneum. Low Ki-67 score. currently Began everolimus 10 mg daily in March 2017. and - octreotide monthly .He has had multiple episodes of Y-90 in the past with good success. Tolerating it quite well. 2. 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 3. History of B12 deficiency. 4. Rash and dry skin, likely due to everolimus, resolved with topical therapy and moisturizing the skin. 5. Elevated LFTs. we will monitor counts closely. PLAN #1 Rx for loading dose of Valtrex 2g twice a day 1 dose already took, per instructions yesterday #2 Valtrex 1000 mg by mouth twice a day for 14 days #3 continue taking Creon 3 times a day with meals #4 patient has dental procedure planned on December 14, 2017 . patient to f/u with cancer center after dental procedure and PRN #5 patient has follow-up appointment with Dr. Romo on @ [facility] #6 patient instructed to hold dose of everolimus for 24 hours only , in order to mitigate the immunosuppression effect of everolimus. patient to resume regular intake of Everolimus per usual regimen afterwards. #7 patient to call Clinic with update on treatment response. #8 f/u with Dr. Pardo on 01/24/2018 #9 CBC,CMP monthly Education, patient instructed to go to ER immediately and or call Clinic if any Shortness of Breath, Temp >/=100.4, fevers, chills, cardiac type chest pain, bleeding, excessive bruising, headaches, blurry vision, dizziness, abdominal pain, difficulty swallowing, and pain unrelieved by medication. TIME SPENT: 20 minutes 15 > minutes includes but not limited to discussion, counselling and co-ordination~ of care. Discussion with other health care providers, record review, review of lab work, diagnostic tests. Plan discussed extensively with patient. All the questions answered today. Thank you for the opportunity to be involved in the care of Juan Guadarrama. Billing Level: Return visit 3 TONE THOMPSON-Tatyana, ONC Nov 30, 2017 12:10
[2017-12-08 08:56] LABS: PLATELET COUNT, AUTOMATED 101 K/uL (150-450)
[2017-12-08 08:58] VITALS: BP 119/78
[2018-01-05] MEDS: [UNRECOGNIZED DRUG - OTHER] IM ONLY PRN (08:38)
[2018-01-05 08:42] LABS: PLATELET COUNT, AUTOMATED 97 K/uL (150-450)
[2018-01-05 09:22] VITALS: BP 119/78
[2018-01-24 08:28] VITALS: BP 142/82
--- NOTE | 2018-01-25 16:43 | ONCOLOGY FOLLOW UP NOTE ---
EVENT DATE: January 24, 2018 CHIEF COMPLAINT/REASON FOR VISIT Mr. Guadarrama is a very pleasant, 62-year-old gentleman with a history of low-grade metastatic neuroendocrine tumor of the pancreas, here for followup on octreotide and everolimus. HISTORY OF PRESENT ILLNESS Juan ian. Please see his oncology history below for more detail. In short, he has had multiple ablative procedures to the liver with Y-90 including one in 2015 with excellent response. However, he developed peritoneal studding in late 2016 and began everolimus 10 mg in March 2017. Imaging was done in late December 2017 which showed stable disease, but a suggestion for a trend toward slight growth. We have controlled side effects from the medication including pruritus. He had a cold sore in October of 2017 and was treated with Valtrex with good relief. He has minimal lymphopenia and neutropenia, but does not require a dose adjustment. If this becomes a recurrent issue with the cold sores, we may need to consider prophylactic acyclovir. No issues since that October episode, and it completely resolved. Otherwise, he is doing well. He has noted some sinus drainage, likely related to the air quality which has been poor. ONCOLOGY HISTORY He presented with chest pain in October of 2016 and had pain for approximately two years on and off prior to that time. A round mass in the pancreatic head measuring approximately 3.5 cm was discovered. This was resected by a Whipple surgery, and it was also discovered at that time that he had numerous liver metastases. Fortunately, this was determined to be a low-grade, well- differentiated neuroendocrine tumor with a low Ki-67 score. He has been treated with octreotide with good success in his symptoms, but had progression in 2014- 2015 leading to directed therapy to the liver. Due to growth of lesions in the peritoneum and liver in 2016, he initiated Afinitor 10 mg daily in March 2017. PAST MEDICAL/SURGICAL HISTORY 1. BPH. 2. Osteopenia. 3. Hypercholesterolemia. 4. Low-grade metastatic neuroendocrine tumor. SOCIAL HISTORY Patient is and has presented with his . 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 He has trophy belts from 2002 from [employer] in [facility]. 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 FAMILY HISTORY Remarkable for a father with prostate cancer at age 65 and a brother with bladder cancer at age 39. A paternal grandmother had pancreatic cancer at the age of 80. He also had a sister who had a sarcoma of the leg, now . ALLERGIES No known drug allergies. REVIEW OF SYSTEMS CONSTITUTIONAL: No fevers, chills. HEENT: No headache or vision changes. CARDIOVASCULAR: No chest pain, dyspnea on exertion or edema. RESPIRATORY: No shortness of breath, wheeze, cough. GASTROINTESTINAL: No nausea, vomiting. SKIN: Pruritus is well controlled now. No concerning rash. LYMPHATIC: No concerns. PSYCHIATRIC: No anxiety or depression. ENDOCRINE: No heat or cold intolerance. NEUROLOGIC: No focal deficits. The remainder of the 14-point review of systems is otherwise negative. PHYSICAL EXAMINATION VITAL SIGNS: Blood pressure 142/82, pulse 54, respiratory rate 16, temperature 97.7 Fahrenheit, oxygen saturation 94% on room air. Weight 68.1 kg. Pain zero/10, fatigue zero/10. Due for the flu shot today. GENERAL: Stable condition, resting comfortably in the chair. HEENT: Normocephalic, atraumatic. ABDOMEN: Soft, nontender, nondistended. No masses or organomegaly appreciated. EXTREMITIES: No clubbing, cyanosis, or edema. PSYCHIATRIC: Normal mood and affect. NEUROLOGIC: No deficits. No concerning rash, ulcers, or lesions. No excoriations of concern. Remainder of his physical exam otherwise unremarkable. IMPRESSION AND PLAN Mr. Guadarrama is a very pleasant 62-year-old gentleman with the followin. Metastatic low-grade neuroendocrine tumor with metastases to the liver and peritoneum. Low Ki-67 score. He has had multiple episodes of Y-90 with good success. He is now on octreotide and everolimus 10 mg daily. He started the everolimus in March 2017. He is tolerating it very well. The pruritus which was a problem early on has improved with simple remedies. 2. 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 No need for prophylaxis. He did have a cold sore earlier in 2018, but resolved with treatment. 3. History of B12 deficiency. 4. History of rash and dry skin, likely due to the everolimus. No current issues. BILLING Return visit level 4. Total time 30 minutes, counseling time 20. I plan to see him back every two months with labs monthly. MTDD
[~2018-02-02 08:28] MED LIST changes: +VALA100059 PO; +VALA500T66 PO
[2018-02-02 08:45] VITALS: BP 136/87
[2018-02-02] MEDS: [UNRECOGNIZED DRUG - OTHER] IM ONLY PRN (08:46)
[2018-02-02 08:47] LABS: PLATELET COUNT, AUTOMATED 92 K/uL (150-450)
== END 2018-02-06 ==
LOC: SPU 08:28
PROVIDERS: ATTEND Internal Medicine
DX: C25.0 Malignant neoplasm of head of pancreas (principal); D72.810 Lymphocytopenia; E53.8 Deficiency of other specified B group vitamins; R21 Rash and other nonspecific skin eruption; C78.7 Secondary malignant neoplasm of liver and intrahepatic bile duct; C78.6 Secondary malignant neoplasm of retroperitoneum and peritoneum
CPT/HCPCS: 36415; 82607; 82746; 85025; 96372; 99212; J2353; J3420; 82040; 82247; 82310; 82374; 82435; 82565; 82947; 84075; 84132; 84155; 84295; 84450; 84460; 84520

== ENCOUNTER 2018-03-17 23:23 | Emergency (ER) | payer OTHER ==
[2013-12-07 16:03] VITALS: Wt 63.5 kg
[~2018-03-17 23:23] MED LIST changes: -CYANOCOBALAMIN 1000MCG/ML VIAL IM ONLY ONE; -HYDR-4309 PO; +HYDR-653 PO; -[UNRECOGNIZED DRUG - OTHER] IM ONLY ONE
--- NOTE | 2018-03-17 23:28 | ER Report ---
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 Patient had one set of chills but no fever. He notes no dysuria, no change in his bowel habits, he's had some nausea but no vomiting. Is no shortness of breath or cough. He describes pain as if someone hadn't stretch his arms above his head and he was hit with a lead pipe in his right side. He describes the pain radiating around his anterior ribs. REVIEW OF SYSTEMS: Respiratory: No cough, no dyspnea. Cardiovascular: No chest pain, no palpitations. Gastrointestinal: As above Musculoskeletal: As above Allergies: Uncoded Allergies: DUST, SEASONAL ALLERGIES (Allergy, Unknown, 09/17/11) Home Meds Active Scripts Hydromorphone Hcl (DILAUDID) 2 Mg Tablet, 1-2 TAB PO Q4H PRN for PAIN, #30 Prov:YOKO MEADOWS DO 03/18/18 Lipase/Protease/Amylase (CREON DR 24,000 UNITS CAPSULE) 1 Each Capsule.dr, 1 EACH PO 1-3XD for 60 Days, BOTTLE Prov:TONE THOMPSONP-C, ONC 11/30/17 Oxycodone Hcl/Acetaminophen (PERCOCET 5-325 MG TABLET) 1 Each Tablet, 1 EACH PO Q4H PRN for PAIN, #30 TAB Prov:JOAN FLORENTINO MD 08/03/17 Reported Medications Everolimus (AFINITOR) 10 Mg Tablet, 10 MG PO QDAY 04/07/17 Ibuprofen (IBUPROFEN) 600 Mg Tablet, 1 TAB PO Q6H PRN for PAIN, #20 TAB 03/04/17 Octreotide Acetate (OCTREOTIDE ACETATE) 500 Mcg/1 Ml Vial, IJ [id number], VIAL 02/26/17 Escitalopram Oxalate (LEXAPRO) 5 Mg Tablet, 10 MG PO QDAY 03/20/15 Oxybutynin Chloride (OXYBUTYNIN CHLORIDE) 5 Mg Tablet, 10 MG PO QDAY, TAB 09/06/14 Terazosin Hcl (TERAZOSIN HCL) 10 Mg Capsule, 10 MG PO QHS, CAPSULE 09/06/14 Cholecalciferol (Vitamin D3) (VITAMIN D) 2,000 Unit Capsule, 2000 UNIT PO QDAY, CAPSULE 09/06/14 Alendronate Sodium (Fosamax) 70 Mg Tab, 70 MG PO QWK, #1 09/17/11 Discontinued Reported Medications Finasteride (PROSCAR) 5 Mg Tablet, 5 MG PO QDAY 09/06/14 Past Medical/Surgical History ONCOLOGY HISTORY He presented with chest pain in October of 2016 and had pain for approximately two years on and off prior to that time. A round mass in the pancreatic head measuring approximately 3.5 cm was discovered. This was resected by a Whipple surgery, and it was also discovered at that time that he had numerous liver metastases. Fortunately, this was determined to be a low-grade, well- differentiated neuroendocrine tumor with a low Ki-67 score. He has been treated with octreotide with good success in his symptoms, but had progression in 2014- 2015 leading to directed therapy to the liver. Due to growth of lesions in the peritoneum and liver in 2016, he initiated Afinitor 10 mg daily in March 2017. PAST MEDICAL/SURGICAL HISTORY 1. BPH. 2. Osteopenia. 3. Hypercholesterolemia. 4. Low-grade metastatic neuroendocrine tumor. Reviewed Nurses Notes: Yes Old Medical Records Reviewed: Yes Hx Smoking: No Smoking Status: Never Smoker Exposure to Second Hand Smoke?: No Constitutional Vital Sign - Last 24 Hours 03/17/18 03/17/18 03/17/18 03/18/18 23:26 23:30 23:53 00:36 Temp 97.9 Pulse 56 55 Resp 24 B/P (MAP) 173/89 173/89 (117) 153/83 (106) Pulse Ox 93 98 O2 Delivery Room Air 03/18/18 03/18/18 03/18/18 03/18/18 00:41 01:00 01:11 01:16 Pulse 53 53 ??? B/P (MAP) 165/87 (113) Pulse Ox 98 97 98 03/18/18 03/18/18 03/18/18 03/18/18 01:30 01:31 01:46 02:00 Pulse 53 53 B/P (MAP) 154/89 (110) 141/84 (103) Pulse Ox 97 98 03/18/18 03/18/18 02:01 02:08 Pulse 57 85 Resp 16 B/P (MAP) 132/87 (102) Pulse Ox 97 92 O2 Delivery Room Air Physical Exam Vital signs stable, afebrile, pulse ox normal General Appearance: The patient is alert, has no immediate need for airway protection and no current signs of toxicity. Slightly pale appearing, skin warm and dry, moderate distress HEENT: Pupils equal and round no injection. Oropharynx without redness or e xudate, mucous members are moist Respiratory: Chest is non tender, lungs are clear to auscultation. No chest wall tenderness Cardiac: regular rate and rhythm Gastrointestinal: Abdomen is soft, moderate epigastric tenderness, mild distention, no masses, bowel sounds normal. Musculoskeletal: Neck: Neck is supple and non tender. Extremities have full range of motion and are non tender. Skin: No rashes or lesions. DIFFERENTIAL DIAGNOSIS: After history and physical exam differential diagnosis was considered for abdominal pain including but not limited to appendicitis, cholecystitis, gastritis , worsening metastatic disease and urinary tract infection. Medical Decision Making Data Points Result Diagram: 03/17/18 2345 03/17/18 2345 Laboratory Hematology Test 03/17/18 23:27 03/17/18 23:45 Urine Color Yellow Urine Clarity Clear Urine pH 7.0 pH (4.8-9.5) Urine Specific [place] 1.013 Urine Protein Negative mg/dL (NEGATIVE) Urine Glucose (UA) Negative mg/dL (NEGATIVE) Urine Ketones 20 mg/dL (NEGATIVE) Urine Blood Negative (NEGATIVE) Urine Nitrite Negative (NEGATIVE) Urine Bilirubin Negative (NEGATIVE) Urine Urobilinogen Negative mg/dL (0.2-1.9) Urine Leukocyte Esterase Negative (NEGATIVE) Urine RBC <1 /HPF (0-2/HPF) Urine WBC <1 /HPF (0-5/HPF) Urine Squamous Epithelial Cells None /LPF (</=FEW) Urine Bacteria Negative /HPF (NONE-FEW) Urine Mucus None /HPF (NONE-FEW) Red Blood Count 4.99 M/uL (4.00-5.60) Mean Corpuscular Volume 79.6 fL (80.0-96.0) Mean Corpuscular Hemoglobin 26.7 pg (26.0-33.0) Mean Corpuscular Hemoglobin Concent 33.5 g/dL (32.0-36.0) Red Cell Distribution Width 13.5 % (11.5-14.5) Mean Platelet Volume 8.0 fL (7.2-11.1) Neutrophils (%) (Auto) 74.9 % (39.4-72.5) Lymphocytes (%) (Auto) 15.4 % (17.6-49.6) Monocytes (%) (Auto) 8.4 % (4.1-12.4) Eosinophils (%) (Auto) 0.3 % (0.4-6.7) Basophils (%) (Auto) 1.0 % (0.3-1.4) Nucleated RBC Relative Count (auto) 0.0 /100WBC Neutrophils # (Auto) 3.3 K/uL (2.0-7.4) Lymphocytes # (Auto) 0.7 K/uL (1.3-3.6) Monocytes # (Auto) 0.4 K/uL (0.3-1.0) Eosinophils # (Auto) 0.0 K/uL (0.0-0.5) Basophils # (Auto) 0.0 K/uL (0.0-0.1) Nucleated RBC Absolute Count (auto) 0.00 K/uL Sodium Level 134 mmol/L (137-145) Potassium Level 3.6 mmol/L (3.5-5.0) Chloride Level 104 mmol/L (98-107) Carbon Dioxide Level 23 mmol/L (22-30) Blood Urea Nitrogen 11 mg/dl (9-21) Creatinine 0.80 mg/dl (0.66-1.25) Glomerular Filtration Rate Calc > 60.0 Random Glucose 138 mg/dl (75-110) Calcium Level 8.3 mg/dl (8.4-10.2) Total Bilirubin 0.6 mg/dl (0.2-1.3) Aspartate Amino Transf (AST/SGOT) 46 U/L (0-35) Alanine Aminotransferase (ALT/SGPT) 43 U/L (0-56) Alkaline Phosphatase 164 U/L (0-126) Total Protein 6.6 g/dl (6.3-8.2) Albumin 3.6 g/dl (3.5-5.0) Amylase Level 38 U/L (0-110) Lipase 14 U/L (23-300) Chemistry Test 03/17/18 23:27 03/17/18 23:45 Urine Color Yellow Urine Clarity Clear Urine pH 7.0 pH (4.8-9.5) Urine Specific [place] 1.013 Urine Protein Negative mg/dL (NEGATIVE) Urine Glucose (UA) Negative mg/dL (NEGATIVE) Urine Ketones 20 mg/dL (NEGATIVE) Urine Blood Negative (NEGATIVE) Urine Nitrite Negative (NEGATIVE) Urine Bilirubin Negative (NEGATIVE) Urine Urobilinogen Negative mg/dL (0.2-1.9) Urine Leukocyte Esterase Negative (NEGATIVE) Urine RBC <1 /HPF (0-2/HPF) Urine WBC <1 /HPF (0-5/HPF) Urine Squamous Epithelial Cells None /LPF (</=FEW) Urine Bacteria Negative /HPF (NONE-FEW) Urine Mucus None /HPF (NONE-FEW) White Blood Count 4.4 k/uL (4.5-11.0) Red Blood Count 4.99 M/uL (4.00-5.60) Hemoglobin 13.3 g/dL (14.0-18.0) Hematocrit 39.7 % (42.0-52.0) Mean Corpuscular Volume 79.6 fL (80.0-96.0) Mean Corpuscular Hemoglobin 26.7 pg (26.0-33.0) Mean Corpuscular Hemoglobin Concent 33.5 g/dL (32.0-36.0) Red Cell Distribution Width 13.5 % (11.5-14.5) Platelet Count 108 K/uL (150-450) Mean Platelet Volume 8.0 fL (7.2-11.1) Neutrophils (%) (Auto) 74.9 % (39.4-72.5) Lymphocytes (%) (Auto) 15.4 % (17.6-49.6) Monocytes (%) (Auto) 8.4 % (4.1-12.4) Eosinophils (%) (Auto) 0.3 % (0.4-6.7) Basophils (%) (Auto) 1.0 % (0.3-1.4) Nucleated RBC Relative Count (auto) 0.0 /100WBC Neutrophils # (Auto) 3.3 K/uL (2.0-7.4) Lymphocytes # (Auto) 0.7 K/uL (1.3-3.6) Monocytes # (Auto) 0.4 K/uL (0.3-1.0) Eosinophils # (Auto) 0.0 K/uL (0.0-0.5) Basophils # (Auto) 0.0 K/uL (0.0-0.1) Nucleated RBC Absolute Count (auto) 0.00 K/uL Glomerular Filtration Rate Calc > 60.0 Calcium Level 8.3 mg/dl (8.4-10.2) Total Bilirubin 0.6 mg/dl (0.2-1.3) Aspartate Amino Transf (AST/SGOT) 46 U/L (0-35) Alanine Aminotransferase (ALT/SGPT) 43 U/L (0-56) Alkaline Phosphatase 164 U/L (0-126) Total Protein 6.6 g/dl (6.3-8.2) Albumin 3.6 g/dl (3.5-5.0) Amylase Level 38 U/L (0-110) Lipase 14 U/L (23-300) Urinalysis Test 03/17/18 23:27 Urine Color Yellow Urine Clarity Clear Urine pH 7.0 pH (4.8-9.5) Urine Specific [place] 1.013 Urine Protein Negative mg/dL (NEGATIVE) Urine Glucose (UA) Negative mg/dL (NEGATIVE) Urine Ketones 20 mg/dL (NEGATIVE) Urine Blood Negative (NEGATIVE) Urine Nitrite Negative (NEGATIVE) Urine Bilirubin Negative (NEGATIVE) Urine Urobilinogen Negative mg/dL (0.2-1.9) Urine Leukocyte Esterase Negative (NEGATIVE) Urine RBC <1 /HPF (0-2/HPF) Urine WBC <1 /HPF (0-5/HPF) Urine Squamous Epithelial Cells None /LPF (</=FEW) Urine Bacteria Negative /HPF (NONE-FEW) Urine Mucus None /HPF (NONE-FEW) EKG/Imaging Imaging Results: CT scan of the chest, abdomen and pelvis with IV contrast was obtained. The results of the study are COMPUTED TOMOGRAPHY CHEST, ABDOMEN AND PELVIS WITH INTRAVENOUS CONTRAST DATE OF EXAM: 03/18/2018 12:29 AM. INDICATION: Right upper quadrant pain. History of metastatic neuroendocrine tumor. COMPARISON: CT abdomen and pelvis 04/07/2017, CT chest, abdomen and pelvis 04/23/2014. TECHNIQUE: Contrast enhanced chest, abdomen and pelvis CT performed during the injection of 75 ml of Isovue 370. Sagittal and coronal reconstructions were performed. One of the following dose optimization techniques was utilized in the performance of this exam: Automated exposure control; adjustment of the mA and/or kV according to the patient's size; or use of an iterative reconstruction technique. Specific details can be referenced in the facility's radiology CT exam operational policy. FINDINGS: CHEST: Thyroid: Normal. Thoracic inlet: Normal. Heart and great vessels: Heart size is normal. Nonaneurysmal aorta. Central pulmonary arteries are unremarkable. Mediastinum and alejandro: No adenopathy. Tiny hiatal hernia. Lungs and pleura: No suspicious nodule or consolidation. Calcified granuloma in the left upper lobe. No pleural effusion or pneumothorax. Breast and axilla: Normal. ABDOMEN AND PELVIS: Liver and hepatic vasculature: The liver is cirrhotic in appearance, with irregular margins and hypertrophy of the caudate lobe. There are collateral veins in the upper abdomen including esophageal varices. There are at least 11 hypoattenuating liver lesions consistent with metastases. The largest is in the dome of the liver and measures approximately 3.6 x 3.3 cm in diameter. An enlarged portacaval lymph node measures 2.3 x 1.9 cm on image 107 series 2. Gallbladder and bile ducts: Cholecystectomy. Spleen: Normal. Pancreas: Postoperative appearance consistent with Whipple. Adrenals: Normal. Kidneys, ureters and bladder: Bilateral nonobstructing renal calculi. No acute abnormality or suspicious lesion. Retroperitoneum and aorta: Nonaneurysmal aorta with mild atherosclerosis. GI tract, mesentery and peritoneum: There are enlarged lymph nodes in the mesenteric root suspicious for metastases. For example no along the right aspect of the superior mesenteric artery and vein measures 1.3 x 1.0 cm on image 1:15 series 2. Evidence of obstruction. No pneumatosis or pneumoperitoneum. Small volume of free fluid in the pelvis and adjacent to the spleen. Postoperative changes related to Whipple. Prostate and seminal vesicles: Unremarkable. Bones and soft tissues: There are multiple newly apparent sclerotic bone lesions suspicious for metastases including 2 lesions in the right 2nd rib, lesion in the right 3rd rib, as well as in the bodies of T3, T8 and T9. A lesion in the posterior aspect of the left ilium on image 158 series 2 has increased in size since 04/07/2017, sclerotic lesion in the lateral aspect of left 8th rib is similar to that time. Bilateral L5 pars defects with approximately 12 mm of anterolisthesis. IMPRESSION: 1. At least 11 hypoattenuating hepatic lesions consistent with metastases. 2. Upper abdominal adenopathy suspicious for malignant involvement, new/increased compared to April 2017. 3. New and larger skeletal metastases. 4. Suspected cirrhosis with upper abdominal venous collaterals including paraesophageal varices. 5.. Small volume ascites. The study was read by the radiologist. I viewed the images myself on the PACS system. ED Course/Re-evaluation Clinical Indication for ER IV: Hydration, IV Access ED Course Patient admitted to an examination room. H&P is done. The differential diagnoses was considered. On clinical examination. Patient presents with epigastric pain. He is treated with IV fluid hydration and pain medication. Diagnostic evaluation is ordered. Patient has extensive disease that is metast atic. I think he is having worsening of his disease. He is provided with temporary pain relief. He is advised to follow-up with his oncology clinic. Decision to Disposition Date: Mar 18, 2018 Decision to Disposition Time: 01:59 Depart Departure Latest Vital Signs Vital Signs Date Time Temp Pulse Resp B/P (MAP) Pulse Ox O2 Delivery O2 Flow Rate FiO2 03/18/18 02:08 85 16 132/87 (102) 92 Room Air 03/17/18 23:26 97.9 Impression: Primary Impression: Abdominal pain Additional Impression: Neuroendocrine carcinoma metastatic to liver Condition: Improved Disposition: HOME OR SELF-CARE Referrals: YANI MALIN DO (PCP) [place] Hydromorphone Hcl (DILAUDID) 2 Mg Tablet 1-2 TAB PO Q4H PRN for PAIN, #30 Prov: YOKO MEADOWS DO 03/18/18 Patient Instructions: Abdominal Pain (ED) Additional Instructions: Follow-up with your family development specialist as soon as possible Problem Qualifiers Primary Impression: Abdominal pain Abdominal location: right upper quadrant Qualified Codes: R10.11 - Right upper quadrant pain YOKO MEADOWS DO Mar 17, 2018 23:28
[2018-03-17] MEDS ORDERED: NS(*) 0.9% 1000 ML BAG 1,000 ML IV ONE (23:42)
[2018-03-17] MEDS ORDERED: fentaNYL CITR 100 MCG/2 ML AMP IVP ONE (23:45)
[2018-03-17] MEDS ORDERED: ONDANSETRON 4 MG/2 ML VIAL IVP ONE (23:45)
[2018-03-18 00:05] LABS: PLATELET COUNT, AUTOMATED 108 K/uL (150-450)
[2018-03-18] MEDS ORDERED: IOPAMIDOL 76% 75 ML INFUS BTL 75 ML ONE (00:41)
[2018-03-18] MEDS ORDERED: HYDROMORPHONE HCL 1 MG/ML SYRINGE IVP ONE (01:35)
--- NOTE | 2018-03-18 01:48 | RADIOLOGY IMAGING REPORT ---
FACILITY: [facility] PATIENT NAME: Juan Guadarrama : 1955 MR: [id number] V: [id number] EXAM DATE: [id number] ORDERING PHYSICIAN: YOKO MEADOWS TECHNOLOGIST: Location: [facility] Patient: Juan Guadarrama : 1955 Visit/Account:[id number] Date of Sevice: 03/18/2018 COMPUTED TOMOGRAPHY CHEST, ABDOMEN AND PELVIS WITH INTRAVENOUS CONTRAST DATE OF EXAM: 03/18/2018 12:29 AM. INDICATION: Right upper quadrant pain. History of metastatic neuroendocrine tumor. COMPARISON: CT abdomen and pelvis 04/07/2017, CT chest, abdomen and pelvis 04/23/2014. TECHNIQUE: Contrast enhanced chest, abdomen and pelvis CT performed during the injection of 75 ml of Isovue 370. Sagittal and coronal reconstructions were performed. One of the following dose optimiza tion techniques was utilized in the performance of this exam: Automated exposure control; adjustment of the mA and/or kV according to the patient's size; or use of an iterative reconstruction technique . Specific details can be referenced in the facility's radiology CT exam operational policy. FINDINGS: CHEST: Thyroid: Normal. Thoracic inlet: Normal. Heart and great vessels: Heart size is normal. Nonaneurysmal aorta. Central pulmonary arteries are unremarkable. Mediastinum and alejandro: No adenopathy. Tiny hiatal hernia. Lungs and pleura: No suspicious nodule or consolidation. Calcified granuloma in the left upper lobe . No pleural effusion or pneumothorax. Breast and axilla: Normal. ABDOMEN AND PELVIS: Liver and hepatic vasculature: The liver is cirrhotic in appearance, with irregular margins and hype rtrophy of the caudate lobe. There are collateral veins in the upper abdomen including esophageal va rices. There are at least 11 hypoattenuating liver lesions consistent with metastases. The largest is in the dome of the liver and measures approximately 3.6 x 3.3 cm in diameter. An enlarged [place] lymph node measures 2.3 x 1.9 cm on image 107 series 2. Gallbladder and bile ducts: Cholecystectomy. Spleen: Normal. Pancreas: Postoperative appearance consistent with Whipple. Adrenals: Normal. Kidneys, ureters and bladder: Bilateral nonobstructing renal calculi. No acute abnormality or suspi cious lesion. Retroperitoneum and aorta: Nonaneurysmal aorta with mild atherosclerosis. GI tract, mesentery and peritoneum: There are enlarged lymph nodes in the mesenteric root suspicious for metastases. For example no along the right aspect of the superior mesenteric artery and vein me asures 1.3 x 1.0 cm on image 1:15 series 2. Evidence of obstruction. No pneumatosis or pneumoperito neum. Small volume of free fluid in the pelvis and adjacent to the spleen. Postoperative changes re lated to Whipple. Prostate and seminal vesicles: Unremarkable. Bones and soft tissues: There are multiple newly apparent sclerotic bone lesions suspicious for meta stases including 2 lesions in the right 2nd rib, lesion in the right 3rd rib, as well as in the lashell s of T3, T8 and T9. A lesion in the posterior aspect of the left ilium on image 158 series 2 has inc reased in size since 04/07/2017, sclerotic lesion in the lateral aspect of left 8th rib is similar to that time. Bilateral L5 pars defects with approximately 12 mm of anterolisthesis. IMPRESSION: 1. At least 11 hypoattenuating hepatic lesions consistent with metastases. 2. Upper abdominal adenopathy suspicious for malignant involvement, new/increased compared to Decemb er 2017. 3. New and larger skeletal metastases. 4. Suspected cirrhosis with upper abdominal venous collaterals including paraesophageal varices. 5.. Small volume ascites. Dr. Gomez discussed this case with YOKO MEADOWS on 03/18/2018 1:44 AM. Report Dictated By: Mahendra Gomez MD at 03/18/2018 1:16 AM Report E-Signed By: Mahendra Gomez MD at 03/18/2018 1:45 AM WSN:[id number]
[2018-03-18] MEDS ORDERED: HYDR2TAB74 PO (02:01)
[2018-03-18] MEDS ORDERED: HYDROmorphone 2 MG TAB TH 2 TAB/BOTTLE PO ONE (02:05)
[2018-03-18 02:08] VITALS: BP 132/87
== END 2018-03-18 02:17 | disposition home or self-care (01) ==
LOC: ER 23:59
DX: R10.11 Right upper quadrant pain (principal); C7A.8 Other malignant neuroendocrine tumors; C78.7 Secondary malignant neoplasm of liver and intrahepatic bile duct
CPT/HCPCS: 71260; 74177; 81001; 82150; 83690; 85025; 96361; 96374; 96375; 99284; A9270; J1170; J2405; J3010; J7030; Q9967; 82040; 82247; 82310; 82374; 82435; 82565; 82947; 84075; 84132; 84155; 84295; 84450; 84460; 84520

== ENCOUNTER 2018-04-27 08:30 | Outpatient (RCR) | payer OTHER ==
[2013-12-07 16:03] VITALS: Wt 68.1 kg
[2018-03-02 08:33] VITALS: BP 140/78
[2018-03-02 08:38] LABS: PLATELET COUNT, AUTOMATED 91 K/uL (150-450)
[2018-03-30] MEDS: [UNRECOGNIZED DRUG - OTHER] IM ONLY PRN (08:34)
[2018-03-30 08:35] VITALS: BP 134/81
[~2018-04-27 08:30] MED LIST changes: +HYDR2TAB74 PO; +INFLUENZA VIRUS VAC 0.5ML SYR IM ONLY ONE; +[UNRECOGNIZED DRUG - OTHER] IM ONLY ONE
[2018-04-27 08:38] VITALS: BP 145/81
[2018-04-27] MEDS ORDERED: [UNRECOGNIZED DRUG - OTHER] IM ONLY ONE (08:45)
[2018-04-27] MEDS: [UNRECOGNIZED DRUG - OTHER] IM ONLY PRN (08:46)
[2018-04-27 09:07] LABS: PLATELET COUNT, AUTOMATED 96 K/uL (150-450)
[2018-05-25 08:33] VITALS: BP 150/76
[2018-05-25] MEDS: [UNRECOGNIZED DRUG - OTHER] IM ONLY PRN (08:48)
== END 2018-05-31 ==
LOC: SPU 08:30
PROVIDERS: ATTEND Internal Medicine
DX: C7A.8 Other malignant neuroendocrine tumors (principal); Z23 Encounter for immunization; C7B.02 Secondary carcinoid tumors of liver
CPT/HCPCS: 36415; 85025; 85027; 90471; 90674; 96372; J2353; 82040; 82247; 82310; 82374; 82435; 82565; 82947; 84075; 84132; 84155; 84295; 84450; 84460; 84520

== ENCOUNTER → 2018-05-16 | Outpatient (CLI) | payer OTHER ==
[2013-12-07 16:03] VITALS: BMI 24.4
[~2018-05-16] MED LIST changes: -INFLUENZA VIRUS VAC 0.5ML SYR IM ONLY ONE; -[UNRECOGNIZED DRUG - OTHER] IM ONLY ONE
--- NOTE | 2018-05-16 09:10 | RADIOLOGY IMAGING REPORT ---
FACILITY: [facility] PATIENT NAME: Juan Guadarrama : 1955 MR: [id number] V: [id number] EXAM DATE: ORDERING PHYSICIAN: AJ SANTIZO TECHNOLOGIST: Location: [facility] [place] Patient: Juan Guadarrama : 1955 Visit/Account:[id number] Date of Sevice: 05/16/2018 Exam type: KUB SINGLE VIEW ABDOMEN History: History of kidney stones proximally one year ago, follow-up Comparison: CT abdomen pelvis April 07, 2017. Findings: There is a nonspecific bowel gas pattern. There are surgical clips right upper quadrant of abdomen. There is a collection of calcifications projecting over the lower pole of the left kidney. This ji uping of calcifications measures 9 x 2 mm collectively. No definite calculi seen over the right lian l shadow although this area is predominantly obscured by bowel gas. IMPRESSION: 1. A collection of calcified occasions project over the lower pole the left kidney as described abov e Report Dictated By: Yenifer Jhaveri MD at 05/16/2018 9:03 AM Report E-Signed By: Yenifer Jhaveri MD at 05/16/2018 9:06 AM WSN:[id number]
== END ==
LOC: RAD 08:42
PROVIDERS: ATTEND Urology
DX: N20.0 Calculus of kidney (principal)
CPT/HCPCS: 74018

== ENCOUNTER 2018-07-22 08:28 | Outpatient (RCR) | payer OTHER ==
[2013-12-07 16:03] VITALS: BMI 24.4
[2018-06-22 08:45] VITALS: BP 131/82
[~2018-07-22 08:28] MED LIST changes: +[UNRECOGNIZED DRUG - OTHER] IM ONLY PRN
[2018-07-22 08:31] VITALS: BP 158/84
[2018-07-22 08:47] LABS: PLATELET COUNT, AUTOMATED 91 K/uL (150-450)
== END 2018-09-19 ==
LOC: SPU 08:28
PROVIDERS: ATTEND Internal Medicine
DX: C7A.8 Other malignant neuroendocrine tumors (principal); C7B.02 Secondary carcinoid tumors of liver
CPT/HCPCS: 36415 ×2; 82607; 82728; 82746; 96372; J2353; 85007; 85027; 86316; 82040; 82247; 82310; 82374; 82435; 82565; 82947; 84075; 84132; 84155; 84295; 84450; 84460; 84520

== ENCOUNTER 2018-09-27 10:00 | Outpatient (RCR) | payer OTHER ==
[2013-12-07 16:03] VITALS: BMI 24.4
[~2018-09-27 10:00] MED LIST changes: -OMEP-125 PO; +OMEP-126 PO; -[UNRECOGNIZED DRUG - OTHER] IM ONLY PRN
[2018-09-27 12:40] VITALS: BP 137/75
[2018-09-27 12:45] LABS: PLATELET COUNT, AUTOMATED 131 K/uL (150-450)
== END 2018-10-31 13:04 | disposition home or self-care (01) ==
LOC: SPU 10:00
PROVIDERS: ATTEND Internal Medicine
DX: C7A.8 Other malignant neuroendocrine tumors (principal); C7B.02 Secondary carcinoid tumors of liver
CPT/HCPCS: 36415; 82040; 82247; 82310; 82374; 82435; 82565; 82947; 84075; 84132; 84155; 84295; 84450; 84460; 84520; 85025; 86316

== ENCOUNTER 2018-11-21 08:21 | Outpatient (RCR) | payer OTHER ==
[2013-12-07 16:03] VITALS: BMI 24.4
== END 2018-11-21 08:50 | disposition home or self-care (01) ==
LOC: SPU 08:21
PROVIDERS: ATTEND Internal Medicine
DX: Z02.9 Encounter for administrative examinations, unspecified (principal)

== ENCOUNTER → 2018-11-21 | Outpatient (CLI) | payer OTHER ==
[2013-12-07 16:03] VITALS: BMI 24.4
[2018-11-21 08:56] VITALS: BP 150/86
[2018-11-21 09:01] LABS: PLATELET COUNT, AUTOMATED 107 K/uL (150-450)
== END ==
LOC: SPU 08:35
PROVIDERS: ATTEND Internal Medicine Hematology & Oncology
DX: C7A.8 Other malignant neuroendocrine tumors (principal)
CPT/HCPCS: 36415; 82040; 82247; 82310; 82374; 82435; 82565; 82947; 84075; 84132; 84155; 84295; 84450; 84460; 84520; 85025; 86316